=== PATIENT | male | born 1965 | race Caucasian/White ===

== ENCOUNTER 2018-03-11 23:27 | Emergency (ER) | payer MEDICAID ==
[2018-03-11] MEDS ORDERED: Ketorolac 60 MG/2 ML SDV IM ONE (23:31)
[2018-03-12] MEDS ORDERED: HYDROmorphone 2 MG/ML SDV IM ONE ×2 (00:07→01:51)
--- NOTE | 2018-03-12 00:09 | EDM.PDOC ---
ED HPI GENERAL MEDICAL PROBLEM - General Chief Complaint: Lower Extremity Injury/Pain Stated Complaint: PAIN FROM BIG TOE AMPUTATED Time Seen by Provider: 03/11/18 23:32 Source of Information: Reports: Patient History Limitations: Reports: No Limitations - History of Present Illness INITIAL COMMENTS - FREE TEXT/NARRATIVE: HISTORY AND PHYSICAL: History of present illness: 52-year-old male presenting emergency department with chief complaint of right great toe pain with history of right great toe amputation and type 2 diabetes. Patient states that this seasoning he suddenly developed right foot pain where his great toe have been amputated over a year and a half ago. Denies any trauma to the area. Denies any fever, chills, nausea, vomiting, diarrhea or other signs of systemic infection. States that he lost a great toe after he dropped a propane tank on it and then secondary to his diabetes it became infected. States at that time he became septic and required extended stay in the hospital. This was all in [place]. As above the patient is a type II diabetic and on metformin. He denies any decreased range of motion, strength, or sensation. On examination, patient is tender to palpation at the site of right great toe amputation. There is no surrounding erythema, swelling, or induration. Neurovascular intact. X-ray right foot showed a dorsal to sulcation in the second metatarsophalangeal joint. Using 5 mL 1% lidocaine a digital block of the second metatarsal was achieved without complication. Patient tolerated procedure well. Using hyperextension plus distal traction I was unable to relocate the second metatarsal. Suspect that this has been the dislocated for some time and is now just causing some pain. Review of systems: As per history of present illness and below otherwise all systems reviewed and negative. Past medical history: As per history of present illness and as reviewed below otherwise noncontributory. Surgical history: As per history of present illness and as reviewed below otherwise noncontributory. Social history: No reported history of drug or alcohol abuse. Family history: As per history of present illness and as reviewed below otherwise noncontributory. Physical exam: HEENT: Atraumatic, normocephalic, pupils reactive, negative for conjunctival pallor or scleral icterus, mucous membranes moist, throat clear, neck supple, nontender, trachea midline. Lungs: Clear to auscultation, breath sounds equal bilaterally, chest nontender. Heart: S1S2, regular, negative for clicks, rubs, or JVD. Abdomen: Soft, nondistended, nontender. Negative for masses or hepatosplenomegaly. Negative for costovertebral tenderness. Pelvis: Stable nontender. Genitourinary: Deferred. Rectal: Deferred. Extremities: Postsurgical right great toe amputation, negative for cords or calf pain. Neurovascular unremarkable. Neuro: Awake, alert, oriented. Cranial nerves II through XII unremarkable. Cerebellum unremarkable. Motor and sensory unremarkable throughout. Exam nonfocal. Diagnostics: Right foot x-ray Therapeutics: Tordol 60 mg IM 1, Dilaudid 1 mg IM 1 Impression: Right foot pain Dislocated second metatarsophalangeal joint Plan: After 2 unsuccessful attempts of relocating the second metatarsal phalangeal joint we decided to discharge the patient and have him follow-up with podiatry for further treatment. I did give the patient a prescription for Lizemores 5 #10. In addition I gave him information of follow-up with a primary care provider. He was to return the emergency department if he had a new or worsening symptoms. Definitive disposition and diagnosis as appropriate pending reevaluation and review of above. right foot Pain Score (Numeric/FACES): 10 - Related Data Allergies Allergy/AdvReac Type Severity Reaction Status Date / Time No Known Allergies Allergy Verified 03/11/18 23:40 Home Meds: Home Meds metFORMIN [Glucophage XR] 1 tab PO BID 03/11/18 [History] Past Medical History Endocrine/Metabolic History: Reports: Diabetes, Type II - Past Surgical History Musculoskeletal Surgical History: Reports: Other (See Below) Other Musculoskeletal Surgeries/Procedures:: right big toe amputation;left index amputation Social & Family History - Family History Family Medical History: Noncontributory - Tobacco Use Smoking Status *Q: Never Smoker - Recreational Drug Use Recreational Drug Use: No Review of Systems - Review of Systems Review Of Systems: ROS reveals no pertinent complaints other than HPI. ED EXAM, GENERAL - Physical Exam Exam: See Below Course - Vital Signs Last Recorded V/S: Last Vital Signs Temp 97.6 F 03/11/18 23:27 Pulse 78 03/11/18 23:27 Resp 18 03/11/18 23:27 BP 151/93 H 03/11/18 23:27 Pulse Ox - Orders/Labs/Meds Orders: Active Orders 24 hr Category Date Time Status Foot 2V Rt [CR] Stat Exams 03/12/18 01:13 Taken Foot Comp Min 3V Rt [CR] Stat Exams 03/12/18 00:07 Taken Labs: Laboratory Tests 03/12/18 03/12/18 Range/Units 00:55 00:55 WBC 7.23 (4.0-11.0) K/uL RBC 4.34 L (4.50-5.90) M/uL Hgb 12.8 L (13.0-17.0) g/dL Hct 37.6 L (38.0-50.0) % MCV 86.6 (80.0-98.0) fL MCH 29.5 (27.0-32.0) pg MCHC 34.0 (31.0-37.0) g/dL RDW Std Deviation 38.7 (28.0-62.0) fl RDW Coeff of Tyrel 13 (11.0-15.0) % Plt Count 215 (150-400) K/uL MPV 9.70 (7.40-12.00) fL Neut % (Auto) 50.7 (48.0-80.0) % Lymph % (Auto) 36.9 (16.0-40.0) % [place] % (Auto) 9.3 (0.0-15.0) % Eos % (Auto) 2.8 (0.0-7.0) % Baso % (Auto) 0.3 (0.0-1.5) % Neut # (Auto) 3.7 (1.4-5.7) K/uL Lymph # (Auto) 2.7 H (0.6-2.4) K/uL [place] # (Auto) 0.7 (0.0-0.8) K/uL Eos # (Auto) 0.2 (0.0-0.7) K/uL Baso # (Auto) 0.0 (0.0-0.1) K/uL Sodium 134 L (136-148) mmol/L Potassium 4.0 (3.5-5.1) mmol/L Chloride 101 (98-107) mmol/L Carbon Dioxide 23.5 (21.0-32.0) mmol/L BUN 20 H (7.0-18.0) mg/dL Creatinine 1.0 (0.8-1.3) mg/dL Est Cr Clr Drug Dosing 99.33 mL/min Estimated GFR (MDRD) > 60.0 ml/min Glucose 248 H (74-106) mg/dL Calcium 8.5 (8.5-10.1) mg/dL Total Bilirubin 0.2 (0.2-1.0) mg/dL AST 7 L (15-37) IU/L ALT 21 (14-63) IU/L Alkaline Phosphatase 123 H (46-116) U/L Total Protein 7.5 (6.4-8.2) g/dL Albumin 3.8 (3.4-5.0) g/dL Globulin 3.7 H (2.0-3.5) g/dL Albumin/Globulin Ratio 1.0 L (1.3-2.8) Meds: Medications Discontinued Medications Generic Name Dose Route Start Last Admin Trade Name Freq PRN Reason Stop Dose Admin Hydrocodone Bitart/Acetaminophen 1 tab 03/12/18 01:52 03/12/18 01:57 Lizemores 325-10 Mg PO 03/12/18 01:53 1 tab ONETIME ONE Administration Hydromorphone HCl 1 mg 03/12/18 00:07 03/12/18 00:28 Dilaudid IM 03/12/18 00:08 1 mg ONETIME ONE Administration Hydromorphone HCl 1 mg 03/12/18 01:51 03/12/18 01:57 Dilaudid IM 03/12/18 01:52 1 mg ONETIME ONE Administration Ketorolac Tromethamine 60 mg 03/11/18 23:31 03/11/18 23:42 Toradol IM 03/11/18 23:32 60 mg ONETIME ONE Administration Lidocaine HCl 10 ml 03/12/18 00:59 03/12/18 01:58 Xylocaine-Mpf 1% INJECT 03/12/18 01:00 10 ml ONETIME ONE Administration Departure - Departure Time of Disposition: 02:09 Disposition: Home, Self-Care 01 Condition: Good Clinical Impression: Right foot pain Dislocation of second toe, right, closed Qualifiers: Encounter type: initial encounter Qualified Code(s): S93.104A - Unspecified dislocation of right toe(s), initial encounter - Discharge Information Referrals: PCP,None [Primary Care Provider] - Forms: ED Department Discharge Additional Instructions: My general discharge The following information is given to patients seen in the emergency department who are being discharged to home. This information is to outline your options for follow-up care. We provide all patients seen in our emergency department with a follow-up referral. The need for follow-up, as well as the timing and circumstances, are variable depending upon the specifics of your emergency department visit. If you don't have a primary care physician on staff, we will provide you with a referral. We always advise you to contact your personal physician following an emergency department visit to inform them of the circumstance of the visit and for follow-up with them and/or the need for any referrals to a consulting specialist. The emergency department will also refer you to a specialist when appropriate. This referral assures that you have the opportunity for follow-up care with a specialist. All of these measure are taken in an effort to provide you with optimal care, which includes your follow-up. Under all circumstances we always encourage you to contact your private physician who remains a resource for coordinating your care. When calling for follow-up care, please make the office aware that this follow-up is from your recent emergency room visit. If for any reason you are refused follow-up, please contact the [facility] Emergency Department at and asked to speak to the emergency department charge nurse. [facility] Dr Oconnor, DPM Podiatry [address] [place] [id number] Please call and follow-up with podiatry for your dislocated toe. Be sure to tell them that you were seen in the emergency department and they wish for you to be seen as soon as possible. Take medication as prescribed. Return to emergency department if any new or worsening symptoms. - My Orders Last 24 Hours: My Active Orders 03/12/18 00:07 Foot Comp Min 3V Rt [CR] Stat 03/12/18 01:13 Foot 2V Rt [CR] Stat - Assessment/Plan Last 24 Hours: My Active Orders 03/12/18 00:07 Foot Comp Min 3V Rt [CR] Stat 03/12/18 01:13 Foot 2V Rt [CR] Stat
[2018-03-12 01:31] LABS: CHLORIDE,CL 101 mmol/L (98-107); SODIUM,NA 134 mmol/L (136-148)
[2018-03-12] MEDS ORDERED: Acetaminophen/HYDROcodone 325-10 MG Tab PO ONE (01:52)
[2018-03-12] MEDS ORDERED: Bacitracin Oint 1 GM U/D Packet ONE (02:07)
[2018-03-12] MEDS ORDERED: Bacitracin Oint 1 GM U/D Packet TOP ONE (02:11)
--- NOTE | 2018-03-12 19:28 | CR ---
EXAM DATE: 03/11/18 PATIENT'S AGE: 52 Patient: SETH MOSES Facility: [place], [place] Site . Site : 1965 Study: XRay Extremity Right Foot [id number]/1/2018 12:32:15 AM Ordering Physician: Carlos Padron Final Report: INDICATION: Right toe pain previous amputation. TECHNIQUE: Foot radiograph 3 views right COMPARISON: None FINDINGS: Bone: No acute fractures or aggressive bone lesions are identified. Amputation of the 1st digit is seen distal to the 1st metatarsal head. Small osseous marginal erosions are seen at the base of the 2nd proximal phalanx. Joint: Dorsal dislocation of the 2nd metatarsophalangeal joint is noted. No significant ankle effusion is seen. Soft tissue: Unremarkable. No radiopaque foreign bodies are seen. IMPRESSION: 1. Dorsal dislocation of the 2nd metatarsophalangeal joint is noted. Dictated by Medardo Jones MD @ 03/12/2018 12:33:37 AM Dictated by: Medardo Jones MD @ 03/12/2018 00:33:41 (Electronic Signature) Report Signed by Proxy. JERAD
--- NOTE | 2018-03-12 19:30 | CR ---
EXAM DATE: 03/11/18 PATIENT'S AGE: 52 Patient: SETH MOSES Facility: [place], [place] Site . Site : 1965 Study: XRay Extremity Right Foot [id number]/1/2018 1:48:05 AM Ordering Physician: aCrlos Padron Final Report: INDICATION: Dislocation status post reduction attempt TECHNIQUE: Foot radiograph 2 views right COMPARISON: 03/12/2018 FINDINGS: Bone: No acute fractures or aggressive bone lesions are identified. Amputation of the 1st digit is again noted Joint: Dorsal dislocation of the 2nd metatarsophalangeal joint is noted without interval change. No significant ankle effusion is seen. Soft tissue: Unremarkable. No radiopaque foreign bodies are seen. IMPRESSION: 1. Dorsal dislocation of the 2nd metatarsophalangeal joint is noted without interval change. Dictated by Medardo Jones MD @ 03/12/2018 1:49:48 AM Dictated by: Medardo Jones MD @ 03/12/2018 01:49:51 (Electronic Signature) Report Signed by Proxy. [facility] HOSPITALLaurita
== END 2018-03-12 02:25 | disposition home or self-care (01) ==
LOC: MW.ED 23:27
DX: S93.124A Dislocation of metatarsophalangeal joint of right lesser toe(s), initial encounter (principal); E11.9 Type 2 diabetes mellitus without complications; Z79.84 Long term (current) use of oral hypoglycemic drugs; Z89.411 Acquired absence of right great toe
CPT/HCPCS: 28630; 36415; 73620; 73630; 80053; 85025; 96372; 99283; A9270; J1170; J1885